=== PATIENT | male | born 1965 | race American Indian/Alaskan Native ===

== ENCOUNTER 2019-08-21 10:08 | Emergency (ER) | payer SELFPAY ==
[2019-08-21 10:42] VITALS: BP 164/104
--- NOTE | 2019-08-21 11:58 | Emergency Department Report ---
HPI - General Chief Complaint: Skin Rash Time Seen by Provider: 08/21/19 11:12 - HPI HPI: 54-year-old male presents to the emergency department with a complaint of possible bed bugs. Patient says he travels internationally a lot and has had bed bugs in the past and "I know what it feels like." He denies having any skin rash or lesions but just says that he has itching in the "typical places" including on the penis, in the groin, in the abdomen. He is asking for the "cream" that he got in the past for this which appears to be permethrin. He otherwise denies any past medical history. He thinks that he got the bed bugs in [place]. Patient lives here and his primary care physician is Dr. Sreekanth Giron. ED Past Medical Hx - Past Medical History Previous Medical History?: No Hx Hypertension: Yes Hx Congestive Heart Failure: Yes - Surgical History Past Surgical History?: No Hx Appendectomy: Yes - Social History Smoking Status: Current Every Day Smoker - Medications Home Medications: Home Medications Medication Instructions Recorded Confirmed Last Taken Type Fluticasone Propionate [Flonase] 1 spray NS BID #120 spray.susp 09/03/14 09/14/14 Unknown Rx Lisinopril/Hydrochlorothiazide 1 each PO QDAY #30 tablet 09/03/14 09/14/14 Unknown Rx [Zestoretic 10-12.5 mg] Aspirin [Aspirin BABY CHEW TAB] 81 mg PO QDAY #30 tab 09/18/14 Unknown Rx Furosemide [Lasix TAB] 20 mg PO QDAY #30 tablet 09/18/14 Unknown Rx Potassium Chloride [Klor-Con 10] 10 meq PO QDAY #30 tab 09/18/14 Unknown Rx Warfarin [Coumadin] 5 mg PO QDAY #60 tablet 09/18/14 Unknown Rx carvediloL [Coreg] 6.25 mg PO BID #60 tablet 09/18/14 Unknown Rx Ibuprofen [Motrin] 800 mg PO Q8H PRN #30 tablet 02/09/15 Unknown Rx methOCARBAMOL [Robaxin] 500 mg PO BID #10 tab 02/09/15 Unknown Rx traMADoL [Ultram] 50 mg PO Q6HR PRN #14 tablet 02/09/15 Unknown Rx Loratadine [Claritin] 10 mg PO DAILY #30 tablet 04/16/16 Unknown Rx Permethrin 5% [Acticin 5% CREAM] 1 applicatio TP ONCE #1 tube 04/16/16 Unknown Rx Prednisone [predniSONE 10 mg 10 mg PO .TAPER #1 tab.ds.pk 04/16/16 Unknown Rx (6-Day Pack, 21 Tabs)] hydrOXYzine HCL [Atarax] 25 mg PO Q6HR PRN #25 tablet 04/16/16 Unknown Rx Permethrin 5% [Acticin 5% CREAM] 1 applicatio TP ONCE #1 tube 08/21/19 Unknown Rx predniSONE [Deltasone] 20 mg PO BID #6 tab 08/21/19 Unknown Rx ED Review of Systems ROS: Stated complaint: BED BUGS Other details as noted in HPI Comment: All other systems reviewed and negative Constitutional: denies: fever Respiratory: denies: shortness of breath Cardiovascular: denies: chest pain Gastrointestinal: denies: abdominal pain Skin: pruritus. denies: rash Physical Exam - Physical Exam Vital Signs: Vital Signs 08/21/19 10:40 Temperature 98.1 F Pulse Rate 78 Respiratory 16 Rate Blood Pressure 164/104 O2 Sat by Pulse 98 Oximetry Physical Exam: GENERAL: The patient is well-developed well-nourished. HENT: Normocephalic. Atraumatic. Patient has moist mucous membranes. EYES: Extraocular motions are intact. NECK: Supple. Trachea is midline. ABDOMEN: There is no abdominal distention. SKIN: Skin is warm and dry. I do not see any particular lesions but the patient does have some excoriations consistent with his complaint of pruritus. NEURO: The patient is awake, alert, and oriented. The patient is cooperative. The patient has no focal neurologic deficits. Normal speech. MUSCULOSKELETAL: There is no tenderness or deformity. There is no evidence of acute injury. ED Course Vital Signs 08/21/19 10:40 Temperature 98.1 F Pulse Rate 78 Respiratory 16 Rate Blood Pressure 164/104 O2 Sat by Pulse 98 Oximetry ED Medical Decision Making - Medical Decision Making This patient presents with the complaint of possible bed bugs. He says he has had them before and this feels similar. However the medication he says he previously used to treat it was permethrin, which is usually for scabies. He mostly has some itching and I do see signs of excoriations. However I do not see any particular lesions or rash. The patient was given a prescription for the permethrin and a few days of the steroids for the pruritus. He was given a referral for dermatology. He will return to the ER with any worsening of his symptoms or any acute distress. - Differential Diagnosis bed bugs, scabies, dermatitis, eczema Critical Care Time: No Critical care attestation.: If time is entered above; I have spent that time in minutes in the direct care of this critically ill patient, excluding procedure time. ED Disposition Clinical Impression: Pruritus, Infestation by bed bug Disposition: DC-01 TO HOME OR SELFCARE Is pt being admited?: No Condition: Stable Additional Instructions: Please follow-up with your primary care physician in the next few days. Use the permethrin cream as prescribed. Return to the emergency Department with any worsening of your symptoms or any acute distress. Prescriptions: Permethrin 5% [Acticin 5% CREAM] 1 applicatio TP ONCE #1 tube predniSONE [Deltasone] 20 mg PO BID #6 tab Referrals: Dr Bree [Other] - 2-3 Days Time of Disposition: 11:58
== END 2019-08-21 12:06 | disposition home or self-care (01) ==
LOC: ED 10:08
DX: B88.8 Other specified infestations (principal); L29.9 Pruritus, unspecified; I11.0 Hypertensive heart disease with heart failure; I50.9 Heart failure, unspecified; F17.200 Nicotine dependence, unspecified, uncomplicated; Z90.89 Acquired absence of other organs; Z79.899 Other long term (current) drug therapy; Z88.0 Allergy status to penicillin

== ENCOUNTER 2020-01-21 11:47 | Emergency (ER) | payer SELFPAY ==
[2020-01-21 11:56] VITALS: BP 139/94
--- NOTE | 2020-01-21 12:45 | Emergency Department Report ---
Chief Complaint: Earache Stated Complaint: LFT EAR INFECTION Time Seen by Provider: 01/21/20 12:34 - HPI History of Present Illness: 54-year-old -[place] male presents to the emergency room for intermittent left ear discomfort since November. Patient states that he flies often and uses ear buds in his ears. Patient denies any swimming denies any discharge fever chills nausea vomiting. - Exam Vital Signs: Vital Signs 01/21/20 11:53 Temperature 97.9 F Pulse Rate 111 H Respiratory 18 Rate Blood Pressure 139/94 O2 Sat by Pulse 98 Oximetry Physical Exam: Alert and oriented x3 in no acute distress Right ear exam normal, left ear exam normal Neck full range of motion oromucosa is moist MSE screening note: Focused history and physical exam performed. Due to findings the following was ordered: 54-year-old -[place] male presents to the emergency room for intermittent left ear discomfort since November. Patient states that he flies often and uses ear buds in his ears. Patient denies any swimming denies any discharge fever chills nausea vomiting. Ear exam is normal recommend patient can try taking [id number] Sudafed which is a decongestion that can dry up any fluids in the middle ear as if the patient travels on an airplane that can cause fluid to be trapped into the middle ear. ED Disposition for MSE Clinical Impression: Discomfort of left ear Disposition: Z-07 MED SCREENING EXAM-LEFT Is pt being admited?: No Does the pt Need Aspirin: No Condition: Stable Additional Instructions: Ear exam is normal recommend patient can try taking [id number] Sudafed which is a decongestion that can dry up any fluids in the middle ear as if the patient travels on an airplane that can cause fluid to be trapped into the middle ear. Referrals: ZAIN ONEIL MD [Staff Physician] - 3-5 Days
== END 2020-01-21 12:50 | disposition left against medical advice (07) ==
LOC: ED 11:47
DX: H66.92 Otitis media, unspecified, left ear (principal); Z88.0 Allergy status to penicillin
CPT/HCPCS: 99281

== ENCOUNTER 2020-07-30 03:43 | Emergency (ER) | payer SELFPAY ==
[2020-07-30 04:13] VITALS: BP 128/95
== END 2020-07-30 04:15 | disposition left against medical advice (07) ==
LOC: ED 03:43
DX: R20.0 Anesthesia of skin (principal); Z53.21 Procedure and treatment not carried out due to patient leaving prior to being seen by health care provider

== ENCOUNTER 2020-09-20 11:17 | Emergency (ER) | payer SELFPAY ==
--- NOTE | 2020-09-20 11:41 | Emergency Department Report ---
Blank Doc - Documentation Documentation: 55-year-old male that presents with dizziness and weakness. This initial assessment/diagnostic orders/clinical plan/treatment(s) is/are subject to change based on patient's health status, clinical progression and re- assessment by fellow clinical providers in the ED. Further treatment and workup at subsequent clinical providers discretion. Patient/guardians urged not to elope from the ED as their condition may be serious if not clinically assessed and managed. Initial orders include: 1- Patient sent to [facility] for further evaluation and treatment 2- labs 3- UA
[2020-09-20 12:15] LABS: Basophils # (Auto) 0.1 K/mm3 (0.0-0.1); Basophils % (Auto) 0.9 % (0.0-1.8); Eosinophils # (Auto) 0.2 K/mm3 (0.0-0.4); Eosinophils % (Auto) 3.1 % (0.0-4.3); Hematocrit 43.2 % (35.5-45.6); Lymphocytes # (Auto) 1.8 K/mm3 (1.2-5.4); Lymphocytes % (Auto) 28.5 % (13.4-35.0); Mean Corpuscular HGB Conc 32 % (32-34); Mean Corpuscular Volume 72 fl (84-94); Monocytes # (Auto) 0.6 K/mm3 (0.0-0.8); Monocytes % (Auto) 10.2 % (0.0-7.3); Platelet Count 275 K/mm3 (140-440); Red Blood Count 6.01 M/mm3 (3.65-5.03); Red Cell Distribution Width 15.7 % (13.2-15.2)
--- NOTE | 2020-09-20 12:22 | Emergency Department Report ---
ED General Adult HPI - General Chief complaint: Dizziness Stated complaint: DIZZY PUI?: No Time Seen by Provider: 09/20/20 11:40 Source: patient Mode of arrival: Ambulatory Limitations: No Limitations - History of Present Illness Initial comments: Patient is a 55-year-old male that comes to the emergency room today complaining of dizziness. He states that it started last week and initially he thought nothing of it but it has persisted so he presents to the ER. Patient denies any trauma. He denies hitting his head. He denies any chest pain. He reports shortness of breath as he would normally with activity. He states that he exercises an hour and a half every day. His shortness of breath has not increased with his activity. He denies any lower extremity swelling. Patient states that he had last seen [facility] about a year ago at that time they took him off his lisinopril, Coreg, Coumadin. They were evaluating him for an LV thrombus at one time which they then told him he did not have. That is the time in which they took him off his Coumadin. Patient denies any fever or chills. He denies any abdominal pain. Denies any back pain. Denies any dysuria. Denies any exposure to COVID-19. Nothing seems to make the dizziness better or worse. It just comes out of nowhere. He states that sometimes he notices that his heart rate is elevated. Patient does have a home blood pressure monitor and he monitors his blood pressure weekly. He states that his heart rate is usually in the 90s. On admission in triage his heart rate was 116. On arrival to [facility] his heart rate was 110 on twelve-lead EKG he was placed in the monitor and has been consistently in low sinus tach since that time he has no ectopy. He does have a prolonged DC interval. Normal axis deviation. -: Gradual, days(s) Improves with: none Worsens with: none Associated Symptoms: denies: confusion, chest pain, cough, diaphoresis, fe eugenie/chills, headaches, loss of appetite, malaise, nausea/vomiting, rash, seizure, shortness of breath, syncope, weakness Treatments Prior to Arrival: none - Related Data Previous Rx's Medication Instructions Recorded Last Taken Type Apixaban [Eliquis] 5 mg PO BID #60 tablet 09/20/20 Unknown Rx Lisinopril/Hydrochlorothiazide 1 each PO DAILY #30 tablet 09/20/20 Unknown Rx [Zestoretic 10-12.5 mg Tablet] Metoprolol [Lopressor TAB] 50 mg PO BID #60 tablet 09/20/20 Unknown Rx Allergies Allergy/AdvReac Type Severity Reaction Status Date / Time Penicillins Allergy Unknown Verified 09/20/20 11:37 ED Review of Systems ROS: Stated complaint: DIZZY Other details as noted in HPI Comment: All other systems reviewed and negative ED Past Medical Hx - Past Medical History Previous Medical History?: Yes Hx Hypertension: Yes Hx CVA: No Hx Heart Attack/AMI: No Hx Congestive Heart Failure: Yes Hx Diabetes: No Hx Deep Vein Thrombosis: No Hx Pulmonary Embolism: No Hx GERD: No Hx Liver Disease: No Hx Renal Disease: No Hx of Cancer: No Hx Sickle Cell Disease: No Hx Arthritis: No Hx Headaches / Migraines: No Hx Seizures: No Hx Kidney Stones: No Hx Psychiatric Treatment: No Hx Asthma: No Hx COPD: No Hx Tuberculosis: No Hx Dementia: No Hx HIV: No Additional medical history: Ports of previous LV thrombus requiring a period of time for which she was on Coumadin: Hypertension which she has subsequently been taken off of his medications for: Based on what patient is telling me I think he has a history of atrial fib at 1 time he was taking Coreg and per the patient [facility] is taken him off that as well. - Surgical History Past Surgical History?: Yes Hx Appendectomy: Yes - Social History Smoking Status: Never Smoker Substance Use Type: None - Medications Home Medications: Home Medications Medication Instructions Recorded Confirmed Last Taken Type Apixaban [Eliquis] 5 mg PO BID #60 tablet 09/20/20 Unknown Rx Lisinopril/Hydrochlorothiazide 1 each PO DAILY #30 tablet 09/20/20 Unknown Rx [Zestoretic 10-12.5 mg Tablet] Metoprolol [Lopressor TAB] 50 mg PO BID #60 tablet 09/20/20 Unknown Rx ED Physical Exam - General Limitations: No Limitations General appearance: alert, in no apparent distress - Head Head exam: Present: atraumatic, normocephalic - Eye Eye exam: Present: normal appearance - ENT ENT exam: Present: mucous membranes moist - Neck Neck exam: Present: normal inspection - Respiratory Respiratory exam: Present: normal lung sounds bilaterally. Absent: respiratory distress - Cardiovascular Cardiovascular Exam: Present: regular rate, normal rhythm. Absent: systolic murmur, diastolic murmur, rubs, gallop - GI/Abdominal GI/Abdominal exam: Present: soft, normal bowel sounds - Rectal Rectal exam: Present: deferred - Extremities Exam Extremities exam: Present: normal inspection - Back Exam Back exam: Present: normal inspection - Neurological Exam Neurological exam: Present: alert, oriented X3 - Psychiatric Psychiatric exam: Present: normal affect, normal mood - Skin Skin exam: Present: warm, dry, intact, normal color. Absent: rash ED Course Vital Signs 09/20/20 09/20/20 09/20/20 11:40 15:18 15:29 Temperature 98.0 F 97.5 F L 98.1 F Pulse Rate 116 H 104 H Respiratory 18 18 Rate Blood Pressure 136/88 Blood Pressure 126/97 [Right] O2 Sat by Pulse 97 Oximetry ED Medical Decision Making - Lab Data Result diagrams: 09/20/20 11:55 09/20/20 11:55 - EKG Data EKG shows normal: sinus rhythm Rate: tachycardia - EKG Data When compared to previous EKG there are: no significant change Interpretation: no acute changes - Radiology Data Radiology results: report reviewed, image reviewed - Medical Decision Making Lab Results 09/20/20 09/20/20 09/20/20 Range/Units 11:55 11:55 11:55 WBC 6.3 (4.5-11.0) K/mm3 RBC 6.01 H (3.65-5.03) M/mm3 Hgb 14.0 (11.8-15.2) gm/dl Hct 43.2 (35.5-45.6) % MCV 72 L (84-94) fl MCH 23 L (28-32) pg MCHC 32 (32-34) % RDW 15.7 H (13.2-15.2) % Plt Count 275 (140-440) K/mm3 Lymph % (Auto) 28.5 (13.4-35.0) % Lincoln % (Auto) 10.2 H (0.0-7.3) % Eos % (Auto) 3.1 (0.0-4.3) % Baso % (Auto) 0.9 (0.0-1.8) % Lymph # (Auto) 1.8 (1.2-5.4) K/mm3 Lincoln # (Auto) 0.6 (0.0-0.8) K/mm3 Eos # (Auto) 0.2 (0.0-0.4) K/mm3 Baso # (Auto) 0.1 (0.0-0.1) K/mm3 Seg Neutrophils % 57.3 (40.0-70.0) % Seg Neutrophils # 3.6 (1.8-7.7) K/mm3 D-Dimer (0-234) ng/mlDDU Sodium 136 L (137-145) mmol/L Potassium 3.9 (3.6-5.0) mmol/L Chloride 101.4 (98-107) mmol/L Carbon Dioxide 27 (22-30) mmol/L Anion Gap 12 mmol/L BUN 9 (9-20) mg/dL Creatinine 1.0 (0.8-1.3) mg/dL Estimated GFR > 60 ml/min BUN/Creatinine Ratio 9 % Glucose 70 L (75-100) mg/dL Calcium 9.2 (8.4-10.2) mg/dL Total Bilirubin 0.70 (0.1-1.2) mg/dL AST 16 (5-40) units/L ALT 13 (7-56) units/L Alkaline Phosphatase 73 (35-129) units/L Troponin T < 0.010 (0.00-0.029) ng/mL NT-Pro-B Natriuret Pep 17.98 (0-900) pg/mL Total Protein 7.3 (6.3-8.2) g/dL Albumin 4.1 (3.9-5) g/dL Albumin/Globulin Ratio 1.3 % TSH (0.270-4.200) mlU/mL Urine Color (Yellow) Urine Turbidity (Clear) Urine pH (5.0-7.0) Ur Specific Brave (1.003-1.030) Urine Protein (Negative) mg/dL Urine Glucose (UA) (Negative) mg/dL Urine Ketones (Negative) mg/dL Urine Blood (Negative) Urine Nitrite (Negative) Urine Bilirubin (Negative) Urine Urobilinogen (<2.0) mg/dL Ur Leukocyte Esterase (Negative) Urine WBC (Auto) (0.0-6.0) /HPF Urine RBC (Auto) (0.0-6.0) /HPF 09/20/20 09/20/20 09/20/20 Range/Units 12:27 12:50 12:50 WBC (4.5-11.0) K/mm3 RBC (3.65-5.03) M/mm3 Hgb (11.8-15.2) gm/dl Hct (35.5-45.6) % MCV (84-94) fl MCH (28-32) pg MCHC (32-34) % RDW (13.2-15.2) % Plt Count (140-440) K/mm3 Lymph % (Auto) (13.4-35.0) % Lincoln % (Auto) (0.0-7.3) % Eos % (Auto) (0.0-4.3) % Baso % (Auto) (0.0-1.8) % Lymph # (Auto) (1.2-5.4) K/mm3 Lincoln # (Auto) (0.0-0.8) K/mm3 Eos # (Auto) (0.0-0.4) K/mm3 Baso # (Auto) (0.0-0.1) K/mm3 Seg Neutrophils % (40.0-70.0) % Seg Neutrophils # (1.8-7.7) K/mm3 D-Dimer < 135.00 (0-234) ng/mlDDU Sodium (137-145) mmol/L Potassium (3.6-5.0) mmol/L Chloride (98-107) mmol/L Carbon Dioxide (22-30) mmol/L Anion Gap mmol/L BUN (9-20) mg/dL Creatinine (0.8-1.3) mg/dL Estimated GFR ml/min BUN/Creatinine Ratio % Glucose (75-100) mg/dL Calcium (8.4-10.2) mg/dL Total Bilirubin (0.1-1.2) mg/dL AST (5-40) units/L ALT (7-56) units/L Alkaline Phosphatase (35-129) units/L Troponin T (0.00-0.029) ng/mL NT-Pro-B Natriuret Pep (0-900) pg/mL Total Protein (6.3-8.2) g/dL Albumin (3.9-5) g/dL Albumin/Globulin Ratio % TSH 1.450 (0.270-4.200) mlU/mL Urine Color Straw (Yellow) Urine Turbidity Clear (Clear) Urine pH 7.0 (5.0-7.0) Ur Specific Brave 1.006 (1.003-1.030) Urine Protein <15 mg/dl (Negative) mg/dL Urine Glucose (UA) Neg (Negative) mg/dL Urine Ketones Neg (Negative) mg/dL Urine Blood Neg (Negative) Urine Nitrite Neg (Negative) Urine Bilirubin Neg (Negative) Urine Urobilinogen < 2.0 (<2.0) mg/dL Ur Leukocyte Esterase Neg (Negative) Urine WBC (Auto) < 1.0 (0.0-6.0) /HPF Urine RBC (Auto) 1.0 (0.0-6.0) /HPF Vital Signs 09/20/20 09/20/20 09/20/20 11:40 15:18 15:29 Temperature 98.0 F 97.5 F L 98.1 F Pulse Rate 116 H 104 H Respiratory 18 18 Rate Blood Pressure 136/88 Blood Pressure 126/97 [Right] O2 Sat by Pulse 97 Oximetry EKG noted. Patient has a heart rate of anywhere from 100-120. Alternating between sinus rhythm with a long first-degree and atrial fib with a controlled ventricular response. Patient's history of dizziness is concerning for A. fib RVR. He has been in the monitor here in the emergency room and the nurses have been asked to record strips to include in the EMR for cardiology to review. The patient's twelve-lead EKG has a normal axis, no change in R wave progression in his anterior leads, no acute ST segment elevation or depression. X-ray noted with no pulmonary edema. Labs have been noted. BMP normal. D-dimer normal I have spoke with [facility] who patient is known to regarding patient's presentation and they recommend 1 dose of amnio 150 mg IV. And then starting the patient on his lisinopril HCTZ, starting him on metoprolol 50 twice daily, and Eliquis 5 twice daily. And then having him follow-up in the office. I discussed with the patient his discharge plan of care and he verbalizes understanding of the need to follow-up. He has been compliant and was last seen there in January 2020. Cardiology does confirm that patient on last echo did not have an apical thrombus and was taken off of his Coumadin. Patient has a nonischemic cardiomyopathy with his last EF 35 to 40% per cardiology. I do not think the patient understands the implications of his cardiac disease. Patient did have normal coronaries on cath in 2013. And at one time the patient's EF was documented as low as 15. I have educated the patient about the importance of follow-up. He verbalizes understanding. I told him that his change in lifestyle is probably not related. He has been eating vegan has lost weight and is exercising daily. Patient being discharged home with follow-up instructions with [facility]. He has been given copies of his twelve-lead's and rhythm strips to take with him to the casualty underwriter appointment. - Differential Diagnosis Rule out arrhythmia, ACS Critical care attestation.: If time is entered above; I have spent that time in minutes in the direct care of this critically ill patient, excluding procedure time. ED Disposition Clinical Impression: Palpitations, NICM (nonischemic cardiomyopathy) Disposition: DC TO HOME OR SELFCARE Is pt being admited?: No Does the pt Need Aspirin: No Condition: Stable Prescriptions: Apixaban [Eliquis] 5 mg PO BID #60 tablet Metoprolol [Lopressor TAB] 50 mg PO BID #60 tablet Lisinopril/Hydrochlorothiazide [Zestoretic 10-12.5 mg Tablet] 1 each PO DAILY #3 0 tablet Referrals: DAYTON CARCAMO MD [Staff Physician] - 3-5 Days Time of Disposition: 14:51
[2020-09-20 12:37] LABS: Alanine Aminotransferase 13 units/L (7-56); Albumin 4.1 g/dL (3.9-5); BUN/Creatinine Ratio 9; Blood Urea Nitrogen 9 mg/dL (9-20); Calcium 9.2 mg/dL (8.4-10.2); Hemolysis Index 4
[2020-09-20 12:59] LABS: Bilirubin,Urine NEG (Negative); Blood,Urine NEG (Negative); Color,Urine Straw (Yellow); Protein,Urine <15 mg/dL mg/dL (Negative); Urobilinogen,Urine < 2.0 mg/dL (<2.0)
--- NOTE | 2020-09-20 13:08 | XRay Report ---
CHEST 2 VIEWS INDICATION: chest pain. COMPARISON: None FINDINGS: Support devices: None. Heart: Within normal limits. Lungs/pleura: No acute air space or interstitial disease. No pneumothorax. Additional findings: None. IMPRESSION: Normal chest x-ray Signer Name: Chris De La Rosa Jr, MD Signed: 09/20/2020 1:03 PM Workstation Name: [id number]
[2020-09-20 13:14] LABS: WBC,Urine < 1.0 /HPF (0.0-6.0)
[2020-09-20] MEDS ORDERED: AMIODARONE 150 MG in DEXTROSE 5% IN WATER 100 ML IV ONE (14:45)
[2020-09-20] MEDS ORDERED: APIXABAN 5 MG TAB PO SCH (15:00)
[2020-09-20 18:03] VITALS: BP 121/90
== END 2020-09-20 17:58 | disposition home or self-care (01) ==
LOC: ED 11:17
DX: R00.2 Palpitations (principal); I42.8 Other cardiomyopathies; I10 Essential (primary) hypertension; Z90.49 Acquired absence of other specified parts of digestive tract; Z79.899 Other long term (current) drug therapy; Z88.0 Allergy status to penicillin
CPT/HCPCS: 36415; 71046; 80053; 81001; 83880; 84443; 84484; 85025; 85379; 93005; 96365; 96366; 99284; J0282

== ENCOUNTER 2021-07-21 16:21 | Emergency (ER) | payer BC ==
[2021-07-21 17:18] VITALS: BP 149/99
[2021-07-21] MEDS ORDERED: KETOROLAC 60 MG/2 ML INJ IM ONE (17:41)
[2021-07-21] MEDS ORDERED: dexAMETHasone 4 MG/ML VIAL IM STA (17:41)
--- NOTE | 2021-07-21 17:45 | Emergency Department Report ---
ED General Adult HPI - General Chief complaint: Extremity Injury, Upper Stated complaint: LEFT SHOULDER INJURY/BASKETBALL Time Seen by Provider: 07/21/21 17:23 Source: patient Mode of arrival: Ambulatory Limitations: No Limitations - History of Present Illness Initial comments: 56-year-old -[place] male patient presents with complaints of left s houlder pain x2 days. Patient states the pain began while playing basketball. He states as he elbowed another player he got sudden pain in his left shoulder. He reports he is having difficulty lifting his left arm due to the pain. He denies any numbness/tingling/weakness in his arm, chest pain, shortness of breath, or past medical history. Patient reports minimal relief with ibuprofen. - Related Data Previous Rx's Medication Instructions Recorded Last Taken Type Apixaban [Eliquis] 5 mg PO BID #60 tablet 09/20/20 Unknown Rx Lisinopril/Hydrochlorothiazide 1 each PO DAILY #30 tablet 09/20/20 Unknown Rx [Zestoretic 10-12.5 mg Tablet] Metoprolol [Lopressor TAB] 50 mg PO BID #60 tablet 09/20/20 Unknown Rx Naproxen 500 mg PO BID PRN #20 tablet 07/21/21 Unknown Rx Prednisone [predniSONE 10 mg 10 mg PO .TAPER #1 tab.ds.pk 07/21/21 Unknown Rx (6-Day Pack, 21 Tabs)] methOCARBAMOL [Robaxin TAB] 750 - 1,500 mg PO TID PRN #30 07/21/21 Unknown Rx tablet Allergies Allergy/AdvReac Type Severity Reaction Status Date / Time Penicillins Allergy Unknown Verified 07/21/21 17:18 ED Review of Systems ROS: Stated complaint: LEFT SHOULDER INJURY/BASKETBALL Other details as noted in HPI Respiratory: denies: cough, shortness of breath Cardiovascular: denies: chest pain Musculoskeletal: joint swelling, arthralgia Neurological: denies: numbness, paresthesias ED Past Medical Hx - Past Medical History Hx Hypertension: Yes Hx CVA: No Hx Heart Attack/AMI: No Hx Congestive Heart Failure: Yes Hx Diabetes: No Hx Deep Vein Thrombosis: No Hx Pulmonary Embolism: No Hx GERD: No Hx Liver Disease: No Hx Renal Disease: No Hx Sickle Cell Disease: No Hx Arthritis: No Hx Headaches / Migraines: No Hx Seizures: No Hx Kidney Stones: No Hx Psychiatric Treatment: No Hx Asthma: No Hx COPD: No Hx Tuberculosis: No Hx Dementia: No Hx HIV: No Additional medical history: Ports of previous LV thrombus requiring a period of time for which she was on Coumadin: Hypertension which she has subsequently been taken off of his medications for: Based on what patient is telling me I think he has a history of atrial fib at 1 time he was taking Coreg and per the patient [facility] is taken him off that as well. - Surgical History Hx Appendectomy: Yes - Social History Smoking Status: Never Smoker Substance Use Type: None - Medications Home Medications: Home Medications Medication Instructions Recorded Confirmed Last Taken Type Apixaban [Eliquis] 5 mg PO BID #60 tablet 09/20/20 Unknown Rx Lisinopril/Hydrochlorothiazide 1 each PO DAILY #30 tablet 09/20/20 Unknown Rx [Zestoretic 10-12.5 mg Tablet] Metoprolol [Lopressor TAB] 50 mg PO BID #60 tablet 09/20/20 Unknown Rx Naproxen 500 mg PO BID PRN #20 tablet 07/21/21 Unknown Rx Prednisone [predniSONE 10 mg 10 mg PO .TAPER #1 tab.ds.pk 07/21/21 Unknown Rx (6-Day Pack, 21 Tabs)] methOCARBAMOL [Robaxin TAB] 750 - 1,500 mg PO TID PRN #30 07/21/21 Unknown Rx tablet ED Physical Exam - General Limitations: No Limitations General appearance: alert - Head Head exam: Present: atraumatic, normocephalic - Eye Eye exam: Present: normal appearance - Neck Neck exam: Present: normal inspection, full ROM. Absent: tenderness - Respiratory Respiratory exam: Present: normal lung sounds bilaterally. Absent: respiratory distress - Cardiovascular Cardiovascular Exam: Present: regular rate, normal rhythm - Expanded Upper Extremity Exam Left Shoulder Exam: Present: tenderness (Tenderness to palpation noted over biceps tendon insertion with minimal swelling; no erythema noted). Absent: full ROM (Patient having difficulty with abduction secondary to pain), deformity, tenderness over AC joint Upper Arm exam: Present: normal inspection Elbow exam: Present: normal inspection Forearm Wrist exam: Present: normal inspection Vascular: Absent: vascular compromise - Neurological Exam Neurological exam: Present: alert, oriented X3, normal gait - Psychiatric Psychiatric exam: Present: normal affect, normal mood - Skin Skin exam: Present: warm, dry, intact, normal color. Absent: rash ED Course Vital Signs 07/21/21 17:17 Temperature 98.1 F Pulse Rate 81 Respiratory 16 Rate Blood Pressure 149/99 [Left] O2 Sat by Pulse 100 Oximetry ED Medical Decision Making - Radiology Data Radiology results: report reviewed LEFT SHOULDER 3 VIEW(S) INDICATION / CLINICAL INFORMATION: pain over biceps tendon after injury COMPARISON: None available. FINDINGS: BONES / JOINT(S): No acute fracture or subluxation. Mild DJD of the AC joint. SOFT TISSUES: Calcium at rotator cuff attachment can be seen with calcific tendinitis. ADDITIONAL FINDINGS: None. - Medical Decision Making 56-year-old -[place] male patient presents with complaints of left shoulder pain x2 days. Patient states the pain began while playing basketball. He states as he elbowed another player he got sudden pain in his left shoulder. He reports he is having difficulty lifting his left arm due to the pain. He denies any numbness/tingling/weakness in his arm, chest pain, shortness of breath, or past medical history. Patient reports minimal relief with ibuprofen. X-ray shows arthritic changes and possible calcific tendinitis of the rotator cuff. Patient states pain has significantly improved with meds given here in ED. Recommend he follows up with orthopedics for further evaluation and treatment of his shoulder pain. He is well-appearing, his vitals are within normal limits, he is stable for discharge home. Strict return precautions were discussed in detail patient verbalizes understanding. Patient placed in arm sling Critical care attestation.: If time is entered above; I have spent that time in minutes in the direct care of this critically ill patient, excluding procedure time. ED Disposition Clinical Impression: Left shoulder pain Disposition: 01 HOME / SELF CARE / HOMELESS Is pt being admited?: No Condition: Stable Instructions: Shoulder Pain, Proximal Biceps Tendinitis and Tenosynovitis Prescriptions: Naproxen 500 mg PO BID PRN #20 tablet PRN Reason: pain Prednisone [predniSONE 10 mg (6-Day Pack, 21 Tabs)] 10 mg PO .TAPER #1 tab.ds.pk methOCARBAMOL [Robaxin TAB] 750 - 1,500 mg PO TID PRN #30 tablet PRN Reason: muscle spasm/tightness Referrals: [facility] [Provider Group] - 3-5 Days Forms: Work/School Release Form(ED)
--- NOTE | 2021-07-21 18:31 | XRay Report ---
LEFT SHOULDER 3 VIEW(S) INDICATION / CLINICAL INFORMATION: pain over biceps tendon after injury COMPARISON: None available. FINDINGS: BONES / JOINT(S): No acute fracture or subluxation. Mild DJD of the AC joint. SOFT TISSUES: Calcium at rotator cuff attachment can be seen with calcific tendinitis. ADDITIONAL FINDINGS: None. Signer Name: Stanton Pringle MD Signed: 07/21/2021 6:27 PM Workstation Name: [id number]
== END 2021-07-21 20:17 | disposition home or self-care (01) ==
LOC: ED 16:21
DX: M25.512 Pain in left shoulder (principal); I10 Essential (primary) hypertension; Z86.79 Personal history of other diseases of the circulatory system; Z90.89 Acquired absence of other organs
CPT/HCPCS: 73030; 96372; 99283; J1100; J1885

== ENCOUNTER 2022-03-18 07:05 | Emergency (ER) | payer SELFPAY ==
[2022-03-18 07:46] VITALS: BP 141/93
== END 2022-03-18 23:22 | disposition left against medical advice (07) ==
LOC: ED 07:05
DX: R51.9 Headache, unspecified (principal); Z53.21 Procedure and treatment not carried out due to patient leaving prior to being seen by health care provider

== ENCOUNTER 2022-05-18 09:30 | Emergency (ER) | payer SELFPAY ==
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
[2022-05-18 11:42] VITALS: BP 122/72
== END 2022-05-18 11:41 | disposition home or self-care (01) ==
LOC: ED 09:30
DX: M54.50 Low back pain, unspecified (principal); I11.0 Hypertensive heart disease with heart failure; I50.9 Heart failure, unspecified; Z88.0 Allergy status to penicillin; Z79.899 Other long term (current) drug therapy; V87.7XXA Person injured in collision between other specified motor vehicles (traffic), initial encounter; Y93.89 Activity, other specified; Y92.488 Other paved roadways as the place of occurrence of the external cause; Y99.8 Other external cause status
CPT/HCPCS: 99282